=== PATIENT | male | born 1985 ===

== ENCOUNTER 2018-08-13 07:20 | Inpatient (IN) | payer OTHER ==
[2018-08-13] MEDS ORDERED: Lidocaine/Epi 1% 1:100000 20 ML IJ ONE (07:30)
[2018-08-13] MEDS ORDERED: Lidocaine 1% w Epi 1:100,000 Inj ONE (07:39)
[2018-08-13] MEDS ORDERED: Tdap Vaccine 0.5 ml Vial (10-64 yrs) IM ONE ×2 (07:53→08:10)
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
--- NOTE | 2018-08-13 08:38 | CT ---
Date of service: 08/13/2018 PROCEDURE: CT HEAD WITHOUT CONTRAST. HISTORY: r/o bleed COMPARISON: None available. TECHNIQUE: Axial computed tomography images were obtained through the head/brain without intravenous contrast. Radiation dose: Total exam DLP = 896.25 mGy-cm. This CT exam was performed using one or more of the following dose reduction techniques: Automated exposure control, adjustment of the mA and/or kV according to patient size, and/or use of iterative reconstruction technique. FINDINGS: HEMORRHAGE: There is a small focal extra-axial hemorrhage subjacent to a small focal left parasagittal superior frontal skull fracture.. There may be a small amount of cortical hemorrhage as well. Few tiny bubbles of extra-axial air are also seen subjacent to the fracture. Overlying focal small scalp hematoma. BRAIN: No evidence of large acute infarct. Mild generalized volume loss.. VENTRICLES: No obstructive hydrocephalus. CALVARIUM: Small focal comminuted skull fracture PARANASAL SINUSES: Mild mucosal thickening present within the right maxillary antrum well and multiple ethmoid air cells MASTOID AIR CELLS: Unremarkable as visualized. No inflammatory changes. OTHER FINDINGS: None. IMPRESSION: There is a small focal extra-axial hemorrhage subjacent to a small focal left parasagittal superior frontal skull fracture.. There may be a small amount of cortical hemorrhage as well. Few tiny bubbles of extra-axial air are also seen subjacent to the fracture. Overlying focal small scalp hematoma. Mild generalized volume loss
[2018-08-13] MEDS ORDERED: Sodium Chloride 0.9% 1,000 ML IV STA (08:55)
[2018-08-13 09:19] LABS: BASO # 0.1 K/uL (0.0-0.2); BASO % 0.7 % (0.0-2.0); EOS # 0.1 K/uL (0.0-0.7); EOS % 1.4 % (0.0-4.0); HEMOGLOBIN 16.3 g/dL (12.0-18.0); LYMPH # 3.5 K/uL (1.0-4.3); LYMPH % 35.7 % (20.0-40.0); MEAN CORPUSCULAR HEMOGLOBIN 31.6 pg (27.0-31.0); MEAN CORPUSCULAR HGB CONC 33.9 g/dL (33.0-37.0); MONO # 0.6 K/uL (0.0-0.8); MONO % 6.3 % (0.0-10.0); NEUT # 5.5 K/uL (1.8-7.0); NEUT % 55.9 % (50.0-75.0); NRBC % 0.1 % (0.0-0.0); RBC 5.16 Mil/uL (4.40-5.90); RED CELL DISTRIBUTION WIDTH 14.2 % (11.5-14.5); WHITE BLOOD COUNT 9.8 K/uL (4.8-10.8)
[2018-08-13 09:27] LABS: ALB/GLOB RATIO 1.3 (1.0-2.1); ALBUMIN 4.5 g/dL (3.5-5.0); ALT/SGPT 77 U/L (21-72); AST/SGOT 52 U/L (17-59); BLOOD UREA NITROGEN 6 mg/dl (9-20); CALCIUM 11.4 mg/dL (8.4-10.2); GFR NON-AFRICAN AMERICAN > 60
[2018-08-13 09:29] LABS: PROTHROMBIN TIME 11.5 Seconds (9.8-13.1)
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
[2018-08-13 09:46] LABS: BARBITURATES, UR NEGATIVE (NEGATIVE); BENZODIAZEPINES, UR NEGATIVE (NEGATIVE); OPIATES, UR NEGATIVE (NEGATIVE); PHENCYCLIDINE, UR NEGATIVE (NEGATIVE)
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
[2018-08-13] MEDS ORDERED: Pneumococcal 23-Valent Vaccine IM ONE (17:39)
[2018-08-13] MEDS ORDERED: Influenza Vaccine 60 MCG/0.5 ML SYR (3 yr & up) IM ONE (17:41)
[2018-08-14 05:43] LABS: BASO # 0.1 K/uL (0.0-0.2); BASO % 0.5 % (0.0-2.0); EOS # 0.3 K/uL (0.0-0.7); HEMOGLOBIN 15.1 g/dL (12.0-18.0); LYMPH # 3.9 K/uL (1.0-4.3); LYMPH % 37.3 % (20.0-40.0); MEAN CELL VOLUME 92.1 fl (80.0-94.0); MEAN CORPUSCULAR HEMOGLOBIN 31.5 pg (27.0-31.0); MEAN CORPUSCULAR HGB CONC 34.2 g/dL (33.0-37.0); MEAN PLATELET VOLUME 9.4 fl (7.2-11.7); MONO # 0.6 K/uL (0.0-0.8); MONO % 6.2 % (0.0-10.0); NEUT # 5.5 K/uL (1.8-7.0); NRBC % 0.1 % (0.0-0.0); RBC 4.78 Mil/uL (4.40-5.90); RED CELL DISTRIBUTION WIDTH 13.9 % (11.5-14.5); WHITE BLOOD COUNT 10.4 K/uL (4.8-10.8)
[2018-08-14 05:58] LABS: BLOOD UREA NITROGEN 11 mg/dl (9-20); CALCIUM 11.3 mg/dL (8.4-10.2); GFR NON-AFRICAN AMERICAN > 60
[2018-08-14] MEDS ORDERED: Vancomycin 1.5 GM in Sodium Chloride 0.9% 500 ML IVPB SCH ×2 (08:00→20:00)
[2018-08-14] MEDS ORDERED: cefTRIAXone 2 GM in Sodium Chloride 0.9% 100 ML IVPB ONE (10:22)
[2018-08-14 11:55] VITALS: BMI 37.1
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
--- NOTE | 2018-08-14 14:18 | CT ---
Date of service: 08/14/2018 PROCEDURE: CT HEAD WITHOUT CONTRAST. HISTORY: follow up COMPARISON: 08/13/2018 TECHNIQUE: Axial computed tomography images were obtained through the head/brain without intravenous contrast. Radiation dose: Total exam DLP = 917.37 mGy-cm. This CT exam was performed using one or more of the following dose reduction techniques: Automated exposure control, adjustment of the mA and/or kV according to patient size, and/or use of iterative reconstruction technique. FINDINGS: HEMORRHAGE: There is a small amount of extra-axial blood subjacent to a small minimally depressed left frontal calvarial fracture. This extra-axial blood is grossly unchanged in extent compared to the previous examination. Several bubbles of gas are again seen immediately beneath the depressed left frontal calvarial fracture. In addition, there is a very small left frontal parenchymal hemorrhage subjacent to this extra-axial blood. This was not evident on the previous examination. There is mild surrounding focal vasogenic edema. There is no other intracranial hemorrhage appreciated. BRAIN: No evidence of acute infarct. No chronic white matter ischemic change. VENTRICLES: Unremarkable. No hydrocephalus. CALVARIUM: As above, very small depressed left frontal calvarial fracture PARANASAL SINUSES: Chronic ethmoid, sphenoid and bilateral maxillary sinusitis. MASTOID AIR CELLS: Unremarkable as visualized. No inflammatory changes. OTHER FINDINGS: None. IMPRESSION: Interval development of very small focal parenchymal hemorrhage immediately beneath the previously identified left frontal extra-axial acute blood. There is a small amount of vasogenic edema surrounding this focal parenchymal hemorrhage. There is a small depressed left frontal calvarial fracture again noted with a few bubbles of extra-axial gas. No additional abnormality.
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
--- NOTE | 2018-08-14 17:15 | CP.PCM.PN ---
Subjective - Date & Time of Evaluation Date of Evaluation: 08/14/18 Time of Evaluation: 17:10 - Subjective Subjective: I D CONSULT (INITIAL ) FULL CONSULT TO FOLLOW PATIENTB EXAMINED ,CHART REVIEWED LABS ORDERED WOULD CONTIUE VANCOMYCIN/CEFTRIAXONE PENDING F/U CT SCAN AND LABS Objective - Vital Signs/Intake and Output Vital Signs (last 24 hours): Temp Pulse Resp BP Pulse Ox 98.4 F 95 H 17 125/89 95 08/14/18 16:00 08/14/18 16:00 08/14/18 16:00 08/14/18 16:00 08/14/18 16:00 Intake and Output: 08/14/18 08/14/18 06:59 18:59 Intake Total 400 250 Output Total 700 Balance -300 250 - Medications Medications: Current Medications Clonidine HCl (Catapres) 0.1 mg PO Q8H [facility] Vancomycin HCl 1.5 gm/ Sodium (Chloride) 500 mls @ 250 mls/hr IVPB Q12@0800,2000 [facility]; Protocol Ceftriaxone Sodium 2 gm/ (Sodium Chloride) 100 mls @ 100 mls/hr IVPB DAILY [facility]; Protocol Lorazepam (Ativan) 2 mg IVP Q4H PRN PRN Reason: Seizure activity Lorazepam (Ativan) 1 mg IVP Q4H PRN PRN Reason: Symptoms of alcohol withdrawl Pantoprazole Sodium (Protonix Inj) 40 mg IVP DAILY [facility] - Labs Labs: 08/14/18 05:31 08/14/18 05:31 PT 11.5 Seconds (9.8-13.1) 08/13/18 09:10 INR 1.0 08/13/18 09:10
[2018-08-14] MEDS: Vancomycin 1.5 GM in Sodium Chloride 0.9% 500 ML IVPB SCH (19:55)
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
[2018-08-15 05:07] VITALS: PULSE 76
[2018-08-15 05:21] LABS: BASO # 0.1 K/uL (0.0-0.2); BASO % 1.1 % (0.0-2.0); EOS # 0.4 K/uL (0.0-0.7); EOS % 4.2 % (0.0-4.0); HEMOGLOBIN 15.4 g/dL (12.0-18.0); LYMPH # 3.1 K/uL (1.0-4.3); LYMPH % 36.4 % (20.0-40.0); MEAN CELL VOLUME 91.5 fl (80.0-94.0); MEAN CORPUSCULAR HEMOGLOBIN 31.2 pg (27.0-31.0); MEAN CORPUSCULAR HGB CONC 34.1 g/dL (33.0-37.0); MONO # 0.6 K/uL (0.0-0.8); MONO % 6.9 % (0.0-10.0); NEUT # 4.4 K/uL (1.8-7.0); NEUT % 51.4 % (50.0-75.0); NRBC % 0.3 % (0.0-0.0); RBC 4.94 Mil/uL (4.40-5.90); RED CELL DISTRIBUTION WIDTH 13.5 % (11.5-14.5); WHITE BLOOD COUNT 8.6 K/uL (4.8-10.8)
[2018-08-15 05:52] LABS: BLOOD UREA NITROGEN 14 mg/dl (9-20); CALCIUM 11.7 mg/dL (8.4-10.2); GFR NON-AFRICAN AMERICAN > 60
[2018-08-15 08:16] VITALS: RESP 15; O2SAT 96
[2018-08-15] MEDS ORDERED: cefTRIAXone 2 GM in Sodium Chloride 0.9% 100 ML IVPB SCH (09:00)
[2018-08-15] MEDS: Vancomycin 1.5 GM in Sodium Chloride 0.9% 500 ML IVPB SCH (09:25)
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
--- NOTE | 2018-08-15 11:22 | CP.PCM.PN ---
Subjective - Date & Time of Evaluation Date of Evaluation: 08/15/18 Time of Evaluation: 11:21 - Subjective Subjective: reviewed CT hemaatoma stable no air neuro intact ok to d/c home with antibiotics as per ID Objective - Vital Signs/Intake and Output Vital Signs (last 24 hours): Temp Pulse Resp BP Pulse Ox 97.9 F 76 15 129/86 96 08/15/18 07:58 08/15/18 07:58 08/15/18 07:58 08/15/18 07:58 08/15/18 07:58 Intake and Output: 08/15/18 08/15/18 06:59 18:59 Intake Total 516 600 Output Total 1400 Balance -884 600 - Medications Medications: Current Medications Clonidine HCl (Catapres) 0.1 mg PO Q8H [facility]EL Last Admin: 08/15/18 04:47 Dose: Not Given Vancomycin HCl 1.5 gm/ Sodium (Chloride) 500 mls @ 250 mls/hr IVPB Q12@0800,2000 [facility]; Protocol Last Admin: 08/15/18 09:25 Dose: 250 mls/hr Ceftriaxone Sodium 2 gm/ (Sodium Chloride) 100 mls @ 100 mls/hr IVPB DAILY [facility]; Protocol Last Admin: 08/15/18 09:25 Dose: 100 mls/hr Lorazepam (Ativan) 2 mg IVP Q4H PRN PRN Reason: Seizure activity Lorazepam (Ativan) 1 mg IVP Q4H PRN PRN Reason: Symptoms of alcohol withdrawl Pantoprazole Sodium (Protonix Inj) 40 mg IVP DAILY AVEL Last Admin: 08/15/18 09:26 Dose: 40 mg - Labs Labs: 08/15/18 05:08 08/15/18 05:08 PT 11.5 Seconds (9.8-13.1) 08/13/18 09:10 INR 1.0 08/13/18 09:10
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
[2018-08-15 12:12] VITALS: TEMP 98.5
[2018-08-15 12:19] VITALS: BP 139/91
== END 2018-08-15 14:00 | disposition home or self-care (01) | DRG 57 ==
LOC: H.ER 07:20 → H.ERHOLD 09:24 → H.ICU/CCU 15:31
PROC: 0HQ0XZZ Repair Scalp Skin, External Approach (ICD-10-PCS; principal; 2018-08-13)
PROC: 3E02340 Introduction of Influenza Vaccine into Muscle, Percutaneous Approach (ICD-10-PCS; 2018-08-13)
PROC: 3E0234Z Introduction of Serum, Toxoid and Vaccine into Muscle, Percutaneous Approach (ICD-10-PCS; 2018-08-13)
DX: S02.0XXA Fracture of vault of skull, initial encounter for closed fracture (principal); S01.81XA Laceration without foreign body of other part of head, initial encounter; S06.309A Unspecified focal traumatic brain injury with loss of consciousness of unspecified duration, initial encounter; Z23 Encounter for immunization; Y08.09XA Assault by strike by other specified type of sport equipment, initial encounter